=== PATIENT | male | born 1955 | race Caucasian/White ===

== ENCOUNTER 2023-07-07 12:17 | Outpatient (CLI) | payer BC | END 2023-07-07 12:18 | disposition home or self-care (01) | LOC: DTY/OP 12:17 | PROVIDERS: ATTEND Surgery | DX: E11.9 Type 2 diabetes mellitus without complications (principal) | CPT/HCPCS: 97802 ==

== ENCOUNTER 2023-12-30 11:43 | Outpatient (CLI) | payer MEDICARE, BC | END 2023-12-30 11:44 | disposition home or self-care (01) | LOC: LABBT 11:43 | PROVIDERS: ATTEND Surgery | DX: Z01.810 Encounter for preprocedural cardiovascular examination (principal); K21.9 Gastro-esophageal reflux disease without esophagitis; E78.5 Hyperlipidemia, unspecified; I10 Essential (primary) hypertension; E11.9 Type 2 diabetes mellitus without complications; G47.33 Obstructive sleep apnea (adult) (pediatric); M54.50 Low back pain, unspecified; E66.01 Morbid (severe) obesity due to excess calories | CPT/HCPCS: 93005; 93010 ==

== ENCOUNTER 2023-12-30 12:00 | Inpatient (IN) | payer MEDICARE, BC ==
[2024-01-04] MEDS ORDERED: Scopolamine 1 mg/72 hour Patch ONE (09:35)
[2024-01-04] MEDS ORDERED: Sodium Chloride 0.9% 100 ML ONE (09:36)
[2024-01-04] MEDS ORDERED: cefOXitin 2 GM VIAL ONE ×2 (09:36→13:45)
[2024-01-04] MEDS ORDERED: Enoxaparin 40 MG (0.4 mL) SYRINGE ONE (09:37)
[2024-01-04] MEDS ORDERED: PROPOFOL 20 ML ONE (09:48)
[2024-01-04] MEDS ORDERED: Midazolam HCl 2 mg/2 ml Vial ONE (09:48)
[2024-01-04] MEDS ORDERED: Lidocaine 1% PF 5 ML VIAL ONE (09:48)
[2024-01-04] MEDS ORDERED: Rocuronium Bromide 10 MG/ML (10ML VIAL) ONE (09:48)
[2024-01-04] MEDS ORDERED: fentaNYL PF 100 MCG/2 ML SYRINGE ONE (09:48)
[2024-01-04] MEDS ORDERED: Ketamine In 0.9 % NaCl 50 MG/5 ML SYRINGE ONE (09:48)
[2024-01-04] MEDS ORDERED: SUCCINYLCHOLINE/SOD CL,ISO/PF 200 MG/10 ML SYRINGE FS ONE (09:49)
[2024-01-04] MEDS ORDERED: Bupivacaine 0.25% HCL 30 ML VIAL ONE (11:14)
[2024-01-04] MEDS ORDERED: EPINEPHrine 1 MG/ML VIAL ONE (11:14)
[2024-01-04] MEDS ORDERED: Dextrose 50% Abboject 50 ML SYRINGE SLOW IVP PRN (11:23)
[2024-01-04] MEDS ORDERED: Morphine 2 MG/ML VIAL SLOW IVP PRN (11:23)
[2024-01-04] MEDS ORDERED: Glucagon 1 MG/ML KIT IM PRN (11:23)
[2024-01-04] MEDS ORDERED: Ondansetron PF 4 MG/2 ML Vial IVP PRN (11:23)
[2024-01-04] MEDS ORDERED: Promethazine HCl 25 MG/ML VIAL IM PRN (11:23)
[2024-01-04] MEDS ORDERED: diphenhydrAMINE 50 MG/ML VIAL IVP PRN (11:23)
[2024-01-04] MEDS ORDERED: Ipratropium/Albuterol 3 ML NEB NEB PRN (11:23)
[2024-01-04] MEDS ORDERED: Dextrose 5% in Water 1,000 ML IV PRN (11:23)
[2024-01-04] MEDS ORDERED: PHENYLEPHRINE-NS 100 MCG/ML 10 ML SYRINGE ONE (12:10)
[2024-01-04] MEDS ORDERED: Ondansetron PF 4 MG/2 ML Vial ONE (12:10)
[2024-01-04] MEDS ORDERED: Dexamethasone 20 MG/5 ML VIAL ONE (12:10)
[2024-01-04] MEDS ORDERED: SUGAMMADEX SODIUM 200 MG/2 ML VIAL ONE (14:00)
[2024-01-04] MEDS ORDERED: Labetalol HCl 100 MG/20 ML VIAL ONE (14:10)
[2024-01-04] MEDS ORDERED: HYDROmorphone 2 MG/ML VIAL ONE (14:10)
[2024-01-04] MEDS ORDERED: D5 1/2 NS w/20 mEq KCL 1,000 ML ONE (14:29)
[2024-01-04] MEDS ORDERED: fentaNYL 50 mcg/mL 1 mL Vial ONE (15:11)
[2024-01-04] MEDS: Ketorolac Tromethamine 30 MG (1 mL) VIAL IVP SCH (16:48)
[2024-01-04] MEDS: D5 1/2 NS w/20 mEq KCL 1,000 ML IV SCH (16:48)
[2024-01-04] MEDS: hydrALAZINE 20 MG/ML VIAL SLOW IVP PRN (17:44)
[2024-01-04] MEDS: Hydrocodone-Acetamin 15 ML UDCUP PO PRN (20:56)
[2024-01-04 21:08] VITALS: BMI 51.0
[2024-01-04] MEDS: HumaLOG 300 UNITS/3 ML VIAL SC PRN (22:54)
[2024-01-05] MEDS: Tamsulosin HCl 0.4 MG CAP PO SCH (09:14)
[2024-01-05] MEDS: Enoxaparin 40 MG (0.4 mL) SYRINGE SC SCH (09:14)
[2024-01-05] MEDS: Pantoprazole 40 MG VIAL IVP SCH (09:14)
[2024-01-05 09:16] VITALS: BP 147/78; TEMP 98.2
== END 2024-01-05 10:05 | disposition home or self-care (01) | DRG 621 ==
LOC: SURG A 01-04 08:12 → SURG B 01-04 15:59
PROVIDERS: ADMIT Surgery; ATTEND Surgery
PROC: 0DB64Z3 Excision of Stomach, Percutaneous Endoscopic Approach, Vertical (ICD-10-PCS; principal; 2024-01-04)
PROC: 8E0W4CZ Robotic Assisted Procedure of Trunk Region, Percutaneous Endoscopic Approach (ICD-10-PCS; 2024-01-04)
DX: E66.01 Morbid (severe) obesity due to excess calories (principal); E11.9 Type 2 diabetes mellitus without complications; K21.9 Gastro-esophageal reflux disease without esophagitis; I10 Essential (primary) hypertension; E78.5 Hyperlipidemia, unspecified; Z68.43 Body mass index [BMI] 50.0-59.9, adult; G47.33 Obstructive sleep apnea (adult) (pediatric); Z98.52 Vasectomy status; Z90.49 Acquired absence of other specified parts of digestive tract; Z86.718 Personal history of other venous thrombosis and embolism; Z99.81 Dependence on supplemental oxygen; Z92.21 Personal history of antineoplastic chemotherapy
CPT/HCPCS: 36416; 88307; 94760; C9113; J0171; J0360; J0665; J0694; J1100; J1170; J1650; J1815; J1885; J2250; J2405; J2704; J3010; J3480; J3490